=== PATIENT | female | born 1990 | race African-American/Black ===

== ENCOUNTER 2016-12-25 11:56 | Day surgery (SDC) | payer MEDICAID ==
--- NOTE | 2016-12-25 13:53 | PRG ---
DATE OF SERVICE: 12/25/2016 TIME OF EVALUATION: 13:25 TIME OF DICTATION: 13:30 Faculty on a patient. SUBJECTIVE: In brief, this is a patient with late entry into care who was first seen at 33 weeks' and an ultrasound that was done previously confirmed that. She is currently at 33 weeks and 4 days by EDC, which was done at her recent evaluation. Therefore, she has unsure dates. She arri ves now with complaint of irregular contractions and white discharge. She denies any trauma or true leakage of fluid. She denies any vaginal bleeding. She does not have a history of any bi rths. She denies headaches, visual changes or right upper quadrant pain. She denies recent interco urse by history with the resident, although she did tell the nurse that intercourse had been done. PAST MEDICAL HISTORY: Otherwise unremarkable. PAST SURGICAL HISTORY: Negative. FAMILY HISTORY: Noncontributory. MEDICATIONS: vitamins. OB HISTORY: Significant for vaginal deliveries and late entry into care with this gestatio n. Once again, she was seen late in the third trimester at around 33 weeks and currently she is 33 weeks and 4 days. PHYSICAL EXAMINATION: VITAL SIGNS: Blood pressure is 97/65, pulse is 97, respirations are 16, temperature is 98. Clinica lly, she is in no acute distress. ABDOMEN: Soft, nontender. PELVIC EXAM: Currently deferred until we perform a FFN and a HEEL STIFFENER-3 test. On monitor, no evidence of pathological decelerations. heart tones are reassuring with moderate variability. No real contractions on tocodynamometer. ASSESSMENT: This is a multigravida, grand multigravida, who is at 33 weeks and 4 days with complain t of irregular contractions and vaginal discharge. PLAN: 1. We will order a HEEL STIFFENER-3 and gonorrhea and chlamydia PCR. 2. OB labs will be ordered. It is important to note that while she has an appointment at the [facility], no labs have been done yet, therefore we will obtain labs now per routine (HIV, RPR, OB labs). 3. We will order an FFN if in fact the patient confirmed she has not had intercourse within the las t 24 hours. 4. We will perform a cervical exam after the FFN is performed if applicable. 5. For now, continue current observation. 6. There is no evidence of true active labor at this time.
[2016-12-25 14:13] LABS: #Basophils 0.1 thou/uL (0.0-0.2); #Eosinphils 0.1 thou/uL (0.0-0.7); #Lymphocytes 3.1 thou/uL (1.20-3.40); #Monocytes 0.9 thou/uL (0.11-0.59); #Neutrophils 6.9 thou/uL (1.40-6.50); %Basophils 0.8 % (0.0-1.0); %Eosinophils 0.8 % (0.0-10.0); %Lymphocytes 27.6 % (21.0-51.0); %Monocytes 8.1 % (0.0-10.0); Mean Platelet Volume 8.4 fL (7.4-10.4); Red Blood Cell (RBC) Count 3.42 mill/uL (4.20-5.40); White Blood Cell (WBC) Count 11.1 thou/uL (4.8-10.8)
[2016-12-25 15:05] LABS: Bilirubin Negative (Negative); Blood, Urine Negative (Negative); Glucose, Urine (Dipstick) 100 mg/dL (Negative); Ketone, Urine Negative (Negative); Nitrite Negative (Negative); Protein, Urine (Dipstick) Negative (Neg-Trace); Urobilinogen 0.2 mg/dL (0.2-1.0)
[2016-12-25 15:07] LABS: Bacteria/HPF Rare-Few HPF (None Seen); Hyaline Casts/LPF 0-3 HYALINE CAST LPF (0-3 Hyaline); RBC/HPF 0-3 HPF (0-3); Squamous Epithelial 0-3 HPF (0-3)
--- NOTE | 2016-12-25 15:14 | PRG ---
DATE OF SERVICE: 12/25/2016 LOCATION: Labor and delivery. Patient in triage. In brief, this is a patient who has been observing for irregular contractions an d vaginal discharge. This patient was first evaluated by Ever Fernandes with Family Medicine program. 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 Prior to the patient leaving, her cervix was found to be only fingertip with no evidence of ruptured memb ranes. There was no evidence of active contraction pattern neither. Vital signs were stable. So th e decision was made to discharge her home prior to our resulting the PEDIATRIC CARE COORDINATOR-3 and other labs. The [facility] ent team has her phone number and contact information and we will call her should there be any abnor malities on the PEDIATRIC CARE COORDINATOR-3 upon the other lab work done. DIAGNOSES: 1. Threatened labor. 2. Cervix fingertip. 3. Reactive nonstress test. 4. Once again, the patient left after initial evaluation, but left prior to complete evaluation. R ather than signing out against medical advice, we released her with the idea that we will call her b ack if there is anything pressing or abnormal on her evaluation.
== END 2016-12-25 14:25 | disposition home or self-care (01) ==
LOC: L&D/OP 11:56
PROVIDERS: ATTEND Obstetrics & Gynecology
DX: O47.03 False labor before 37 completed weeks of gestation, third trimester (principal); Z3A.33 33 weeks gestation of pregnancy; Z79.899 Other long term (current) drug therapy; Z87.891 Personal history of nicotine dependence
CPT/HCPCS: 81001; 85025; 86706; 86762; 86780; 86900; 86901; 87086; 87389; 87480; 87491; 87510; 87591; 87660

== ENCOUNTER → 2016-12-28 | Day surgery (SDC) | payer MEDICAID ==
[~2016-12-28] MED LIST: Azithromycin 250 MG TAB ONE; Lidocaine 1% PF 5 ML VIAL ONE; cefTRIAXone\\ROCEPHIN 500 MG VIAL ONE
== END ==
LOC: EDSTATUS 10:24 → ER/OP 16:56
PROVIDERS: ATTEND Obstetrics & Gynecology
DX: O98.313 Other infections with a predominantly sexual mode of transmission complicating pregnancy, third trimester (principal); A64 Unspecified sexually transmitted disease; Z3A.34 34 weeks gestation of pregnancy; Z79.899 Other long term (current) drug therapy; Z87.891 Personal history of nicotine dependence
CPT/HCPCS: J0696; J2001

== ENCOUNTER 2017-01-06 21:10 | Day surgery (SDC) | payer MEDICAID, OTHER ==
[2017-01-06 21:40] VITALS: BP 105/58; TEMP 98.1; BMI 27.1
--- NOTE | 2017-01-06 22:14 | PDOC.LDHP ---
Labor and Delivery H&P Chief complaint: other HPI: 26 yo @ 35w2d by LMP with late to care presents for monitoring after being found to have tachycardia at [facility]. She does admit to a migraine headache today. She admits to SOB that she attributes to carrying extra weight. She denies chest pain or abdominal pain. She denies feeling contractions. She does admit to feeling the baby move all the time and denies any vaginal bleeding. She is currently having vaginal discharge that has been going on for the last week. Due date: 02/08/17 Dating criteria: last menstrual period Grav: 8 Para: 6 Current complications: none Abnormal US findings: No Current medications: pre- vitamins Previous surgical history: none Social history: tobacco use (3-4 cigs per day ), alcohol use (none), drug use ( none) - Physical Exam Vital signs reviewed and normal: yes General: NAD Heart: RRR Lungs: nonlabored breathing Abdomen: NTTP Extremeties: no edema FHT: category 2 - OB Labs Blood type: O RH: positive HIV: negative RPR: negative HEPSAg: negative GBS: unknown Additional Labs: Gonorrhea positive on 12/25/16 was treated. - Plan Plan: observation in L&D -: BPP and NST CBC and CMP VP3, UA, UDS LR 1000ml bolus <Lawrence Fallon - Last Filed: 01/06/17 22:30> <Lima Salas - Last Filed: 01/07/17 00:20> Allergies/Adverse Reactions: Allergies Allergy/AdvReac Type Severity Reaction Status Date / Time No Known Allergies Allergy Verified 01/06/17 21:31 Attending Addendum - Attending Addendum I personally evaluated the patient and discussed the management with Dr. Fallon I agree with the History, Examination, Assessment and Plan documented above with any addition or exceptions noted below. 26 yo female at 32.5 wks by LMP/31.3 wk sono sent from [facility] for elevated heart rate. Late and incomplete care sIUP: Labs from previous hospital stay reviewed. Incomplete records from clinic tonight but patient states she has been to every OV. GBS swab performed today. Gonorrhea infection this : s/p treatment. Repeat today. Results not available at time of discharge. tachycardia: Initially borderline at 160 but improved with IVFs. Labs ordered. No evidence of infection. Mild anemia appropriate for state. TSH WNL. No evidence of anomalies on sono. BPP 10/27. Reported small amount of fluid in abdomen but images reviewed. Does not appear to be ascites. Maternal Rh positive. Marijuana use: Discussed risk. Discuss need for screening now that patient was found to be positive. Discussed need to screen after . Patient states understanding and reports she will not use. Anemia of : Continue PNV. Increase iron rich foods. All labs and tracing reviewed. Cat 1 tracing for majority of monitoring. Precautions discussed. Vaginal swabs pending. Has followup appointment with [facility] on Wednesday, patient to keep appointment. Cristina <Lima Salas - Last Filed: 01/07/17 00:20>
[2017-01-06] MEDS ORDERED: Lactated Ringer's 1,000 ML IV SCH (22:15)
[2017-01-06 22:48] LABS: #Eosinphils 0.1 thou/uL (0.0-0.7); #Lymphocytes 3.7 thou/uL (1.20-3.40); #Neutrophils 5.1 thou/uL (1.40-6.50); %Basophils 0.4 % (0.0-1.0); %Eosinophils 1.2 % (0.0-10.0); %Lymphocytes 36.7 % (21.0-51.0); Hematocrit 32.2 % (36.0-47.0); Mean Platelet Volume 8.6 fL (7.4-10.4); Red Blood Cell (RBC) Count 3.26 mill/uL (4.20-5.40); White Blood Cell (WBC) Count 9.9 thou/uL (4.8-10.8)
[2017-01-06 23:04] LABS: ALT (SGPT) 7 U/L (8-55); AST (SGOT) 12 U/L (5-34); Alkaline Phosphatase 172 U/L (40-150); Anion Gap 12 mmol/L (10-20); BUN (Urea Nitrogen) 7 mg/dL (7.0-18.7); Bilirubin, Total Less than 0.2 mg/dL (0.2-1.2); Calc. Creatinine Clearance 148 mL/min (70-130); Calcium 8.7 mg/dL (7.8-10.44); Carbon Dioxide 22 mmol/L (22-29); Chloride 107 mmol/L (98-107); Estimated GFR-MDRD Greater than 90; Globulin 3.2 g/dL (2.4-3.5); Protein, Total 6.2 g/dL (6.0-8.3)
[2017-01-06 23:34] LABS: Bilirubin Negative (Negative); Blood, Urine Negative (Negative); Glucose, Urine (Dipstick) 100 mg/dL (Negative); Ketone, Urine Negative (Negative); Nitrite Negative (Negative); Protein, Urine (Dipstick) Negative (Neg-Trace); Urobilinogen 0.2 mg/dL (0.2-1.0)
--- NOTE | 2017-01-06 23:34 | ULT ---
OB ULTRASOUND ULTRASOUND BIOPHYSICAL PROFILE 01/06/17 HISTORY: tachycardia. FINDINGS: A single live intrauterine gestation is seen with measurements corresponding to an estimated gestati onal age of 36 weeks, 1 day and TERRELL at 02/02/17. The estimated weight measures 2940 grams or 6 lb. 8 oz. measurements are as follows: BPD 8.86 cm 35 weeks, 6 days HC 32.45 cm 36 weeks, 5 days AC 32.44 cm 36 weeks, 2 days FL 7.18 cm 36 weeks, 5 days heart rate measures 139 beats per minute. The KERA measures 13.2 cm. The placenta is posteriorl y located without evidence of placenta previa. A three vessel cord, cord insertion, kidneys, bladder, stomach, four chambered heart, spine, l ateral ventricles, cerebellum, nose/lips, are visualized. No definite anomalies are seen. Normal tone, breathing, movements, and amniotic fluid are seen. The ultrasound bio physical profile score is 8 out of 8. Cervical length measures 2.7 cm. There is suggestion of a tiny amount of fluid under the diaphragm of unknown clinical significance. IMPRESSION: 1. Single live intrauterine gestation of 36 weeks, 1 day estimated gestational age and TERRELL at 1 04/04/16. 2. Ultrasound biophysical profile score is 8 out of 8. 3. Tiny amount of free fluid under the diaphragm of uncertain clinical significance. POS: [facility]
[2017-01-06 23:37] LABS: Bacteria/HPF None Seen HPF (None Seen); Hyaline Casts/LPF 0-3 HYALINE CAST LPF (0-3 Hyaline); RBC/HPF None Seen HPF (0-3); Squamous Epithelial 0-3 HPF (0-3); WBC/HPF 0-3 HPF (0-3)
[2017-01-06 23:43] LABS: Amphetamine Not Detected (NotDetected); Methadone Not Detected (NotDetected); Methamphetamine Not Detected (NotDetected)
== END 2017-01-07 00:15 | disposition home or self-care (01) ==
LOC: L&D/OP 21:10
PROVIDERS: ATTEND Family Medicine
DX: O35.8XX0 Maternal care for other (suspected) fetal abnormality and damage, not applicable or unspecified (principal); O99.333 Smoking (tobacco) complicating pregnancy, third trimester; F17.210 Nicotine dependence, cigarettes, uncomplicated; Z3A.35 35 weeks gestation of pregnancy; Z79.899 Other long term (current) drug therapy
CPT/HCPCS: 36415; 59025; 76805; 76819; 80053; 80306; 81001; 84443; 85025; 87480; 87491; 87510; 87591; 87660; 96360; 96361

== ENCOUNTER 2019-01-31 23:28 | Emergency (ER) | payer OTHER, SELFPAY ==
[2019-02-01 00:10] LABS: #Basophils 0.1 thou/uL (0.0-0.2); #Eosinphils 0.1 thou/uL (0.0-0.7); #Lymphocytes 3.5 thou/uL (1.20-3.40); #Monocytes 0.8 thou/uL (0.11-0.59); #Neutrophils 6.5 thou/uL (1.40-6.50); %Basophils 1.3 % (0.0-1.0); %Eosinophils 0.9 % (0.0-10.0); %Lymphocytes 31.4 % (21.0-51.0); %Monocytes 7.5 % (0.0-10.0); Hemoglobin 10.9 g/dL (12.0-16.0); Mean Corpuscular HGB CONC 33.6 g/dL (32.0-36.0); Mean Corpuscular Hemoglobin 33.5 pg (27.0-31.0); Mean Corpuscular Volume 99.7 fL (78.0-98.0); Mean Platelet Volume 8.3 fL (7.4-10.4); Platelet Count 186 thou/uL (130-400); RBC Distribution Width 11.9 % (11.5-14.5); Red Blood Cell (RBC) Count 3.24 mill/uL (4.20-5.40); White Blood Cell (WBC) Count 11.1 thou/uL (4.8-10.8)
[2019-02-01 00:22] LABS: Bacteria/HPF None Seen HPF (None Seen); Bilirubin Negative (Negative); Blood, Urine 2+ (Negative); Clarity Clear (Clear); Glucose, Urine (Dipstick) 300 mg/dL (Negative); Leukocyte Negative Leu/uL (Negative); Nitrite Negative (Negative); Protein, Urine (Dipstick) Negative (Neg-Trace); RBC/HPF 0-3 HPF (0-3); Squamous Epithelial 0-3 HPF (0-3); Urobilinogen Normal mg/dL (Less than 2); WBC/HPF 0-3 HPF (0-3)
--- NOTE | 2019-02-01 09:05 | ULT ---
PRELIMINARY REPORT/[facility]/EMERGENCY AFTER HOURS PROCEDURE: PROCEDURE INFORMATION: Exam: US After First Trimester, Transabdominal Exam date and time: 02/01/2019 12:05 AM Clinical history: 29 years old, female; Lmp or gestational age (in weeks): 17w2d; Antepartum complica tions; complicated by abdominal or pelvic pain; Lower; Second trimester; ; Patient HX: Pelvic cramping pain, vaginal bleeding TECHNIQUE: Imaging protocol: Real-time transabdominal obstetrical ultrasound of the maternal pelvis and a second or third trimester with image documentation. COMPARISON: No relevant prior studies available. FINDINGS: Viable twin intrauterine . Dividing membrane membrane identified. Fetus A: Cephalic position, on maternal right. Anterior placenta. No placenta previa or other visible placental abnormality on the provided images. Amniotic fluid volume within normal limits. BPD: , 3.7 cm. , 17 weeks, 2 days HC: , 14.2 cm. , 17 weeks, 4 days AC: , 12.0 cm. , 17 weeks, 5 days FL: , 2.2 cm. , 16 weeks, 4 days Composite age: 17 weeks, 2 days. Estimated weight: 185 grams. heart activity documented by the technologist, 149 bpm. Evaluation of anatomy still limited by relatively early gestation, less than 18-19 weeks. Complete/detailed evaluation of anatomy was not performed/possible at this time. Visualized anatomy on the provided images appears within normal limits for gestation. Followup/complete evaluation of anatomy recommended, as clinically appropriate. Fetus B: Breach position, on maternal left. Anterior placenta. No placenta previa or other visible placental abnormality on the provided images. Amniotic fluid volume within normal limits. BPD: , 3.7 cm. , 17 weeks, 2 days HC: , 13.6 cm. , 17 weeks, 1 day AC: , 11.7 cm. , 17 weeks, 3 days FL: , 2.4 cm. , 17 weeks, 1 day Composite age: 17 weeks, 2 days. Estimated weight: 189 grams. heart activity documented by the technologist, 150 bpm. Evaluation of anatomy still limited by relatively early gestation, less than 18-19 weeks. Complete/detailed evaluation of anatomy was not performed/possible at this time. Visualized anatomy on the provided images appears within normal limits for gestation. Followup/complete evaluation of anatomy recommended, as clinically appropriate. Cervical length was estimated with transabdominal scanning, measuring approximately 3.7 cm. No definite cervical canal dilation or fluid on the provided images. No visible maternal adnexal abnormality. The urinary bladder was not completely evaluated/imaged at this time. IMPRESSION: 1. Viable twin intrauterine , composite age 17 weeks, 2 days for both twins. 2. Anterior placenta. No visible placental abnormality on the provided images. 3. Normal amniotic fluid volume in both gestational sacs. 4. Other details discussed above. PROCEDURE INFORMATION: Exam: US After First Trimester, Transabdominal. Additional Gestation Exam date and time: 02/01/2019 12:05 AM Clinical history: 29 years old, female; Lmp or gestational age (in weeks): 17w2d; Antepartum complica tions; complicated by abdominal or pelvic pain; Lower; Second trimester; ; Patient HX: Pelvic cramping pain, vaginal bleeding TECHNIQUE: Imaging protocol: Real-time transabdominal obstetrical ultrasound of the maternal pelvis and a second or third trimester with image documentation. Additional Gestation was evaluated. COMPARISON: No relevant prior studies available. FINDINGS: Viable twin intrauterine . Dividing membrane membrane identified. Fetus A: Cephalic position, on maternal right. Anterior placenta. No placenta previa or other visible placental abnormality on the provided images. Amniotic fluid volume within normal limits. BPD: , 3.7 cm. , 17 weeks, 2 days HC: , 14.2 cm. , 17 weeks, 4 days AC: , 12.0 cm. , 17 weeks, 5 days FL: , 2.2 cm. , 16 weeks, 4 days Composite age: 17 weeks, 2 days. Estimated weight: 185 grams. heart activity documented by the technologist, 149 bpm. Evaluation of anatomy still limited by relatively early gestation, less than 18-19 weeks. Complete/detailed evaluation of anatomy was not performed/possible at this time. Visualized anatomy on the provided images appears within normal limits for gestation. Followup/complete evaluation of anatomy recommended, as clinically appropriate. Fetus B: Breach position, on maternal left. Anterior placenta. No placenta previa or other visible placental abnormality on the provided images. Amniotic fluid volume within normal limits. BPD: , 3.7 cm. , 17 weeks, 2 days HC: , 13.6 cm. , 17 weeks, 1 day AC: , 11.7 cm. , 17 weeks, 3 days FL: , 2.4 cm. , 17 weeks, 1 day Composite age: 17 weeks, 2 days. Estimated weight: 189 grams. heart activity documented by the technologist, 150 bpm. Evaluation of anatomy still limited by relatively early gestation, less than 18-19 weeks. Complete/detailed evaluation of anatomy was not performed/possible at this time. Visualized anatomy on the provided images appears within normal limits for gestation. Followup/complete evaluation of anatomy recommended, as clinically appropriate. Cervical length was estimated with transabdominal scanning, measuring approximately 3.7 cm. No definite cervical canal dilation or fluid on the provided images. No visible maternal adnexal abnormality. The urinary bladder was not completely evaluated/imaged at this time. IMPRESSION: 1. Viable twin intrauterine , composite age 17 weeks, 2 days for both twins. 2. Anterior placenta. No visible placental abnormality on the provided images. 3. Normal amniotic fluid volume in both gestational sacs. 4. Other details discussed above. Thank you for allowing us to participate in the care of your patient. Dictated and Authenticated by: Mihir Reynolds MD 02/01/2019 1:40 AM Central Time ([place] & [place]) FINAL REPORT OB ULTRASOUND: HISTORY: patient. Bleeding. COMPARISON: None. TECHNIQUE: Sagittal and transverse imaging of a gravid uterus is performed. FINDINGS/IMPRESSION: This report is in agreement with the preliminary report by [facility]. Viable twin intrauterine . Anterior placenta. No evidence of previa. Cervical length is 3.7 cm. Fetus A has a heart rate of 149 bpm. Fetus B has a heart rate of 150 bpm. Composite age is 17 weeks and 2 days. POS: [facility]
== END 2019-02-01 01:16 | disposition home or self-care (01) ==
LOC: ERS 23:28
DX: O20.9 Hemorrhage in early pregnancy, unspecified (principal); Z3A.15 15 weeks gestation of pregnancy
CPT/HCPCS: 36415; 76856; 81003; 81015; 84702; 85025; 86900; 86901; 93976

== ENCOUNTER 2019-05-31 10:28 | Inpatient (IN) | payer MEDICAID, OTHER ==
[~2019-05-31 10:28] MED LIST changes: -Azithromycin 250 MG TAB ONE; +Bupivacaine/Epinephrine 0.25% 30 ML VIAL ONE; -Lidocaine 1% PF 5 ML VIAL ONE; -cefTRIAXone\\ROCEPHIN 500 MG VIAL ONE
[2019-05-31] MEDS ORDERED: Betamet Acet/Betamet Na Ph 30 MG/5 ML VIAL ONE (11:02)
[2019-05-31] MEDS ORDERED: Penicillin G Potassium 5 MILL.UNITS VIAL ONE (11:02)
[2019-05-31] MEDS ORDERED: Acetaminophen 500 MG TAB PO PRN (11:08)
[2019-05-31] MEDS ORDERED: NS / Oxytocin 40 units/1000ml 1,000 ML IV PRN (11:08)
[2019-05-31] MEDS ORDERED: hydrALAZINE 20 MG/ML VIAL SLOW IVP PRN ×2 (11:08→18:06)
[2019-05-31] MEDS ORDERED: Methylergonovine 0.2 MG/ML VIAL IM PRN (11:08)
[2019-05-31] MEDS ORDERED: Ondansetron PF 4 MG/2 ML Vial IVP PRN ×3 (11:08→18:06)
[2019-05-31] MEDS ORDERED: Diphenoxylate HCl/Atropine Tablet PO PRN (11:08)
[2019-05-31] MEDS ORDERED: Carboprost 250 MCG/ML AMP IM PRN (11:08)
[2019-05-31] MEDS ORDERED: HYDROcodone/Acetaminophen 5/325 mg Tablet PO PRN ×2 (11:08)
[2019-05-31] MEDS ORDERED: Promethazine HCl 25 MG/ML VIAL IM PRN ×2 (11:08→11:37)
[2019-05-31] MEDS ORDERED: Butorphanol Tartrate 1 MG/ML VIAL SLOW IVP PRN (11:08)
[2019-05-31] MEDS ORDERED: Lidocaine 1% (PF) 30 ML VIAL SC PRN (11:08)
[2019-05-31] MEDS ORDERED: Misoprostol 200 MCG TAB PR PRN (11:08)
[2019-05-31] MEDS ORDERED: Ibuprofen 800 MG TAB PO PRN (11:08)
[2019-05-31] MEDS ORDERED: Lactated Ringer's 1,000 ML IV SCH (11:15)
[2019-05-31] MEDS ORDERED: Penicillin G Potassium 5 MILL.UNITS in Sodium Chloride 0.9% 100 ML IVPB SCH (11:15)
[2019-05-31 11:21] VITALS: BMI 28.7
--- NOTE | 2019-05-31 11:21 | PDOC.LDHP ---
Labor and Delivery H&P Chief complaint: loss of fluid HPI: 29yo at 34w2d by LMP c/w 17w sono with DI/DI TIUP here with complaints of LOF clear since this morning. Some contractions, 4/10 on pain scale. Current gestational age (weeks): 34 Due date: 07/10/19 Dating criteria: last menstrual period Grav: 10 Para: 7 Current complications: di/di twins, other (poor care) Abnormal US findings: No (ceph/ceph, 2%discordance, 1765gm, 1724gm on 05/16) Past Medical History: anemia Current medications: pre-farideh vitamins, iron Previous surgical history: dilation and curettage Allergies/Adverse Reactions: Allergies Allergy/AdvReac Type Severity Reaction Status Date / Time No Known Allergies Allergy Verified 01/06/17 21:31 Social history: none - Physical Exam Vital signs reviewed and normal: yes General: NAD, breathing through contractions Heart: RRR Lungs: CTAB Abdomen: gravid Extremeties: no edema FHT: category 1 Keller contractions every: 4min - Vaginal Exam cm dilated: 4 Effacement: 75% Station: -2 - OB Labs Blood type: O RH: positive Antibody Screen: negative HIV: negative RPR: negative HEPSAg: negative 1 hour GCT: negative GBS: negative Urine drug screen: not done Rubella: immune - Assessment L&D Assessment: premature rupture of membranes - Plan Plan: labor augmentation if indicated, GBS antibiotic prophylaxis, informed consent obtained, anesthesia consult for pain management -: Ceph/Ceph on sono, concordantly grown twins, for twin vaginal delivery. Disc poss breech extraction of second twin and risk of stat CS for second twin if distress arises. Also high risk for PPH based on parity and twin , will do active mgmt of 3rd stage of labor.
[2019-05-31 11:22] LABS: Hemoglobin 9.6 g/dL (12.0-16.0); Mean Corpuscular HGB CONC 33.3 g/dL (32.0-36.0); Mean Corpuscular Hemoglobin 30.8 pg (27.0-31.0); Mean Corpuscular Volume 92.6 fL (78.0-98.0); Platelet Count 204 thou/uL (130-400); RBC Distribution Width 14.2 % (11.5-14.5); Red Blood Cell (RBC) Count 3.11 mill/uL (4.20-5.40); White Blood Cell (WBC) Count 8.7 thou/uL (4.8-10.8)
[2019-05-31] MEDS ORDERED: Betamet Acet/Betamet Na Ph 30 MG/5 ML VIAL IM SCH (11:30)
[2019-05-31] MEDS ORDERED: Fentanyl 4 mcg/Bup 0.1% Cadd 100 ML ONE (11:31)
[2019-05-31] MEDS ORDERED: EPHEDRINE 25 MG/5 ML SYRINGE SLOW IVP PRN (11:37)
[2019-05-31] MEDS ORDERED: Naloxone HCl 0.4 mg/ml Vial IVP PRN ×2 (11:37)
[2019-05-31] MEDS ORDERED: Acetaminophen 325 MG TAB PO PRN (11:37)
[2019-05-31] MEDS ORDERED: diphenhydrAMINE 50 MG/ML VIAL IVP PRN (11:37)
[2019-05-31] MEDS ORDERED: Lactated Ringer's 500 ML IV PRN (11:37)
[2019-05-31] MEDS ORDERED: Fentanyl 4 mcg/Bupivacaine 0.1% Cassette 100 ML EPIDURAL SCH (11:45)
[2019-05-31] MEDS ORDERED: Communication Order-Pharmacy FS SCH (11:45)
[2019-05-31 11:48] LABS: Syphilis Antibody Nonreactive (Nonreactive); Syphilis Antibody Index 0.09 S/CO (<1.00 Non-Reactive)
[2019-05-31 11:49] LABS: HBSAg Index 0.21 S/CO (0-0.99); Hep B Surf Ag Non-Reactive S/CO (NonReactive)
--- NOTE | 2019-05-31 14:33 | PDOC.APC ---
Antepartum Consult SUDARSHAN CALVO is a 29 year old female at [34 4/7] gestational weeks with di/ di twins. I was asked by Dr. Howell to speak with the patient regarding anticipated course for a baby born at 34 weeks. Once the patient is taken for delivery, the resuscitation team will be present. The initial focus will be on respiratory stabilization and may include minimal assistance, CPAP or intubation with surfactant administration. I discussed that the patient will need to be admitted to the NICU in an isolette due to temperature instability associated with prematurity. We will then obtain IV access (peripheral will be first line, umbilical if unable to obtain peripheral) as babies are at risk for hypoglycemia. We discussed that babies born are at higher risk for feeding intolerance, infection and jaundice. I discussed that breastmilk is the best nutrition for babies and she is strongly encouraged to pump after delivery. Mother does not plan to breastfeed and I discussed the risk of NEC with use of formula in babies. I explained that the duration of hospital stay will be determined on the clinical course of the baby. I outlined the milestones that needed to be achieved to ensure safe discharge home (minimum 4 pound weight, maintaining temperature in an open crib , no respiratory support and eating everything by mouth with adequate weight gain). I encouraged her to contact our service again if additional questions arise. I spent 20 minutes with the patient including face to face counseling and coordination of care. Labs: Ante Labs Blood Type O POSITIVE 05/31/19 11:01 Hep Bs Antigen Non-Reactive S/CO (NonReactive) 05/31/19 11:01
[2019-05-31] MEDS ORDERED: PHENYLEPHRINE-NS 100 MCG/ML 10 ML SYRINGE ONE (14:41)
[2019-05-31] MEDS ORDERED: Lidocaine 2% 10 ML INJ ONE (14:42)
[2019-05-31] MEDS ORDERED: Succinylcholine Chloride 20 MG/ML 10 ml SYRINGE FS ONE (14:42)
[2019-05-31] MEDS ORDERED: PROPOFOL 0 ML ONE (14:42)
[2019-05-31] MEDS ORDERED: Oxytocin 10 UNITS/ML VIAL ONE (14:42)
[2019-05-31] MEDS ORDERED: Misoprostol 200 MCG TAB ONE (15:07)
[2019-05-31] MEDS ORDERED: Carboprost 250 MCG/ML AMP ONE (15:08)
[2019-05-31] MEDS ORDERED: Methylergonovine 0.2 MG/ML VIAL ONE (15:08)
[2019-05-31] MEDS ORDERED: NS / Oxytocin 40 units/1000ml 1,000 ML ONE (15:08)
[2019-05-31] MEDS ORDERED: Tranexamic Acid 1,000 MG/10 ML VIAL ONE (15:09)
[2019-05-31] MEDS ORDERED: Penicillin G 2.5 MILL.units 2.5 MILL.UNITS in Premix Bag 1 BAG IVPB SCH (15:15)
[2019-05-31] MEDS ORDERED: NS w/ Oxytocin 10 units 0 ML ONE (15:16)
--- NOTE | 2019-05-31 15:42 | PDOC.OPDEL ---
OB Operative/Delivery Note Delivery Dr/Surgeon: Lynda Quinn/Santos (attending) Assist: Kyleigh Anesthesia: epidural - Findings A Sex: male - 1 min: 8 - 5 min: 9 B Sex: female - 1 min: 9 - 5 min: 9 - Additional Findings/Plan Placenta delivered: spontaneous Repaired Obstetrical Laceration: none Estimated blood loss: 100 Compilations/Other Findings: Procedure: Spontaneous Vaginal Delivery Anesthesia: epidura QBL: 100 ml Pre-op Diagnosis: 1. Prelabor Rupture of Membranes 2. Di/Di twin gestation 3. Hx of PTD at 36wks 4. Hx of EAB x 2 5. Grand multiparity 6. Late to care Post-op Diagnosis: 1. Prelabor Rupture of Membranes 2. Di/Di twin gestation 3. Hx of PTD at 36wks 4. Hx of EAB x 2 5. Grand multiparity 6. Late to care Indications: A 29 y/o female presents with LOF, admitted for PPROM. Delivery Note: This is a 29 y/o female @ 34.2wks who was admitted for PPROM now s/p to viable di/di twins. Following an uneventful antepartum course, a vigorous male was delivered over an intact perineum in the occipitoanterior position at 1521. Anterior Shoulder and then remainder of the body delivered. No nuchal cord. The head was held down and mouth and nares were bulb suctioned. Cord clamped and cut and cord blood collected. Baby A was taken to the warmer for evaluation by NICU. Apgars were 8 & 9. Following delivery of Baby A, then AROM was accomplished with an allis clamp for Baby B. Following this, Baby B presented in the cephalic presentatio and at 1526 a vigorous female was delivered over an intact perineum in the occipitoanterior position. Anterior Shoulder and then remainder of the body delivered. No nuchal cord. The head was held down and mouth and nares were bulb suctioned. Cord clamped and cut and cord blood collected. Baby B was taken to the warmer for evaluation by NICU. Apgars were 9 & 9. Placenta A and B delivered intact each with a 3 vessel cord noted. Fundal massage was performed and the fundus was firm. The cervix and vagina were inspected and found to be free of lacerations. Infants went to NICU in good condition. Patient tolerated delivery well and went to after routine recovery. Post delivery plan: routine recovery
[2019-05-31 16:09] LABS: Amphetamine Not Detected (NotDetected); Barbiturates Screen Not Detected (NotDetected); Benzodiazepine Screen Not Detected (NotDetected); Cocaine Metabolite Screen Not Detected (NotDetected); Medtox Control Line Valid? VALID (VALID); Medtox Reader # READER 1; Methadone Not Detected (NotDetected); Methamphetamine Not Detected (NotDetected); Opiate Screen Not Detected (NotDetected); Oxycodone Screen Not Detected (NotDetected); Phencyclidine (PCP) Not Detected (NotDetected); THC/Cannabinoid Screen Detected (NotDetected); Tricyclic Screen Not Detected (NotDetected)
[2019-05-31] MEDS ORDERED: NS / Oxytocin 40 units/1000ml 1,000 ML IV SCH (18:06)
[2019-05-31] MEDS ORDERED: Lanolin Ointment 7 GM TUBE TOP PRN (18:06)
[2019-05-31] MEDS ORDERED: Milk Of Magnesia 30 ML UDCUP PO PRN (18:06)
[2019-05-31] MEDS ORDERED: Bisacodyl 10 MG SUPP PR PRN (18:06)
[2019-05-31] MEDS ORDERED: Ferrous Sulfate 325 MG TAB PO SCH (18:45)
[2019-05-31] MEDS: Docusate Calcium (SURFAK) 240 MG CAP PO SCH (21:05)
[2019-05-31] MEDS: Ibuprofen 800 MG TAB PO SCH (21:06)
[2019-06-01] MEDS: Ibuprofen 800 MG TAB PO SCH ×3 (05:41→21:43)
--- NOTE | 2019-06-01 06:05 | PDOC.PP ---
Post Progress Note Post Day #: 1 PO intake tolerated: yes Flatus: yes Ambulation: yes Vital Signs (12 hours) Temp Pulse Resp BP Pulse Ox 06/01/19 04:00 98.2 F 60 14 121/60 99 06/01/19 00:00 98.2 F 59 L 16 125/65 99 05/31/19 20:00 98.3 F 60 20 114/60 99 05/31/19 18:06 98.4 F 54 L 20 122/58 L 98 Weight Weight 73.482 kg - Physical Examination General: NAD Cardiovascular: no m/r/g, RRR Respiratory: clear to auscultation bilaterally, non-labored breathing Abdominal: + bowel sounds, lochia, appropriately TTP Neurological: no gross focal deficits Psychiatric: A&Ox3, normal affect Result Diagrams: 06/01/19 06:11 Additional Labs: Post Labs Blood Type O POSITIVE 05/31/19 11:01 Hep Bs Antigen Non-Reactive S/CO (NonReactive) 05/31/19 11:01 (1) Twin delivered Code(s): O30.009 - TWIN , UNSP NUM PLCNTA & AMNIO SACS, UNSP TRIMESTER Status: Acute (2) (normal spontaneous vaginal delivery) Code(s): O80 - ENCOUNTER FOR FULL-TERM UNCOMPLICATED DELIVERY Status: Acute - Assessment/Plan Mom doing well. Minimal bleeding. Ambulating. Tolerating normal diet. Pain controlled. Hb 9.6-->8.7. UDS + marijuana; will consult case management.
[2019-06-01 06:30] LABS: Hemoglobin 8.7 g/dL (12.0-16.0); Mean Corpuscular HGB CONC 33.4 g/dL (32.0-36.0); Mean Corpuscular Hemoglobin 30.7 pg (27.0-31.0); Mean Corpuscular Volume 92.1 fL (78.0-98.0); Mean Platelet Volume 9.7 fL (7.4-10.4); Platelet Count 147 thou/uL (130-400); Red Blood Cell (RBC) Count 2.83 mill/uL (4.20-5.40); White Blood Cell (WBC) Count 15.7 thou/uL (4.8-10.8)
[2019-06-01] MEDS ORDERED: Adacel (T-DAP) 0.5 ML SYRINGE IM ONE (09:00)
[2019-06-01] MEDS: Ferrous Sulfate 325 MG TAB PO SCH ×2 (09:15→17:27)
[2019-06-01] MEDS: Docusate Calcium (SURFAK) 240 MG CAP PO SCH ×2 (09:15→21:43)
[2019-06-01] MEDS: Prenatal Vitamin 1 TAB PO SCH (09:15)
--- NOTE | 2019-06-02 04:29 | PDOC.PP ---
Post Progress Note Post Day #: 2 PO intake tolerated: yes Flatus: yes Ambulation: yes Vital Signs (12 hours) Temp Pulse Resp BP Pulse Ox 06/02/19 00:00 97.5 F L 68 16 104/71 98 06/01/19 20:00 97.7 F 65 14 110/63 99 06/01/19 16:50 98.1 F 61 18 119/82 99 Weight Weight 73.482 kg - Physical Examination General: NAD Cardiovascular: no m/r/g, RRR Respiratory: clear to auscultation bilaterally, non-labored breathing Abdominal: + bowel sounds, lochia, appropriately TTP Neurological: no gross focal deficits Psychiatric: A&Ox3, normal affect Result Diagrams: 06/01/19 06:11 Additional Labs: Post Labs Blood Type O POSITIVE 05/31/19 11:01 Hep Bs Antigen Non-Reactive S/CO (NonReactive) 05/31/19 11:01 (1) Twin delivered Code(s): O30.009 - TWIN , UNSP NUM PLCNTA & AMNIO SACS, UNSP TRIMESTER Status: Acute (2) (normal spontaneous vaginal delivery) Code(s): O80 - ENCOUNTER FOR FULL-TERM UNCOMPLICATED DELIVERY Status: Acute - Assessment/Plan Mom doing well. Minimal bleeding. Ambulating. Tolerating normal diet. Pain controlled. Hb 9.6-->8.7. UDS + marijuana; if seen and cleared by CM today, would recommend bed and breakfast tonight since babies both currently in the NICU. Faculty OBGYN Note: Attestation. I have seen ans agree with plan of care. If able to be sent home today we will bed and breakfast.
[2019-06-02] MEDS: Ibuprofen 800 MG TAB PO SCH (05:52)
[2019-06-02 08:24] VITALS: BP 137/89; TEMP 98.8
[2019-06-02] MEDS: Ferrous Sulfate 325 MG TAB PO SCH (10:12)
[2019-06-02] MEDS: Prenatal Vitamin 1 TAB PO SCH (10:12)
[2019-06-02] MEDS: Docusate Calcium (SURFAK) 240 MG CAP PO SCH (10:12)
== END 2019-06-02 11:40 | disposition home or self-care (01) | DRG 806 ==
LOC: L&D/OP 10:28 → L&D 10:49 → 3SE 18:17
PROVIDERS: ADMIT Student in an Organized Health Care Education/Training Program; ATTEND Student in an Organized Health Care Education/Training Program
PROC: 10E0XZZ Delivery of Products of Conception, External Approach (ICD-10-PCS; principal; 2019-05-31)
PROC: 10907ZC Drainage of Amniotic Fluid, Therapeutic from Products of Conception, Via Natural or Artificial Opening (ICD-10-PCS; 2019-05-31)
DX: O42.013 Preterm premature rupture of membranes, onset of labor within 24 hours of rupture, third trimester (principal); O99.324 Drug use complicating childbirth; Z37.2 Twins, both liveborn; Z3A.34 34 weeks gestation of pregnancy; O30.043 Twin pregnancy, dichorionic/diamniotic, third trimester; F12.90 Cannabis use, unspecified, uncomplicated
CPT/HCPCS: 36415; 36430; 51702; 80306; 85027; 86780; 86850; 86900; 86901; 87340; 99285; J0702; J2001; J2210; J2540; J2590; J2704; J3490

== ENCOUNTER 2020-01-28 00:43 | Emergency (ER) | payer OTHER ==
[2020-01-28] MEDS ORDERED: Fentanyl 100 MCG/2 ML VIAL ONE ×2 (00:49→01:28)
[2020-01-28] MEDS ORDERED: Boostrix 0.5 ML (Tdap) VIAL ONE (01:02)
[2020-01-28 01:08] LABS: Hemoglobin 14.1 g/dL (12.0-16.0); Mean Corpuscular HGB CONC 34.2 g/dL (32.0-36.0); Mean Corpuscular Hemoglobin 34.4 pg (27.0-31.0); Mean Platelet Volume 8.5 fL (7.4-10.4); Platelet Count 259 thou/uL (130-400); RBC Distribution Width 12.2 % (11.5-14.5); Red Blood Cell (RBC) Count 4.11 mill/uL (4.20-5.40); White Blood Cell (WBC) Count 11.4 thou/uL (4.8-10.8)
[2020-01-28 01:10] LABS: PTT 30.8 sec (22.9-36.1)
[2020-01-28 01:19] LABS: Prothrombin Time 13.7 sec (12.0-14.7)
[2020-01-28 01:34] LABS: MDiff Complete? YES
[2020-01-28 01:35] LABS: Eosinophils 1 % (0-10); Lymphocytes 59 % (21-51); Monocytes 9 % (0-10); Neutrophil 26 % (42-75); Reactive Lymphocytes 5 % (0-10)
[2020-01-28 01:48] LABS: ALT (SGPT) 14 U/L (8-55); AST (SGOT) 22 U/L (5-34); Albumin 4.2 g/dL (3.5-5.0); Alkaline Phosphatase 60 U/L (40-110); Anion Gap 19 mmol/L (10-20); BUN (Urea Nitrogen) 15 mg/dL (7.0-18.7); Bilirubin, Total 0.4 mg/dL (0.2-1.2); Calc. Creatinine Clearance 0 mL/min (70-130); Calcium 9.3 mg/dL (7.8-10.44); Carbon Dioxide 16 mmol/L (22-29); Chloride 110 mmol/L (98-107); Estimated GFR-MDRD 87; Globulin 3.4 g/dL (2.4-3.5); Glucose 110 mg/dL (70-105); Potassium 4.2 mmol/L (3.5-5.1); Protein, Total 7.6 g/dL (6.0-8.3); Sodium 141 mmol/L (136-145)
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
== END 2020-01-28 03:53 | disposition home or self-care (01) ==
LOC: ERS 00:43
DX: S71.131A Puncture wound without foreign body, right thigh, initial encounter (principal); W34.09XA Accidental discharge from other specified firearms, initial encounter; Z23 Encounter for immunization
CPT/HCPCS: 80053; 85025; 85610; 85730; 86850; 86900; 86901; 90471; 90715; 96374; 96375; 96376; G0390; J0690; J3010

== ENCOUNTER 2020-06-16 10:24 | Emergency (ER) | payer OTHER ==
[2020-06-16] MEDS ORDERED: Ketorolac Tromethamine 30 MG/ML VIAL ONE (10:56)
== END 2020-06-16 12:00 | disposition home or self-care (01) ==
LOC: ERS 10:24
DX: M54.2 Cervicalgia (principal); R07.9 Chest pain, unspecified; V89.2XXA Person injured in unspecified motor-vehicle accident, traffic, initial encounter
CPT/HCPCS: 71046; 93005; 96372; J1885

== ENCOUNTER 2021-04-01 03:02 | Emergency (ER) | payer OTHER, SELFPAY ==
[2021-04-01] MEDS ORDERED: Acetaminophen 500 MG TAB ONE (03:17)
[2021-04-01 22:29] LABS: SARS-CoV-2 PCR by NAA DETECTED (NotDetected)
== END 2021-04-01 04:17 | disposition home or self-care (01) ==
LOC: ERS 03:02
DX: U07.1 COVID-19 (principal); F17.200 Nicotine dependence, unspecified, uncomplicated
CPT/HCPCS: 87804; 99283; U0003; U0005

== ENCOUNTER 2022-02-24 09:14 | Emergency (ER) | payer OTHER, SELFPAY ==
[2022-02-24] MEDS ORDERED: Ketorolac Tromethamine 30 MG/ML VIAL ONE (11:12)
== END 2022-02-24 11:39 | disposition home or self-care (01) ==
LOC: ERS 09:14
DX: M10.9 Gout, unspecified (principal); F17.200 Nicotine dependence, unspecified, uncomplicated
CPT/HCPCS: J1885

== ENCOUNTER 2022-02-25 07:59 | Emergency (ER) | payer OTHER ==
[2022-02-25] MEDS ORDERED: Ketorolac Tromethamine 30 MG/ML VIAL ONE ×2 (09:04)
== END 2022-02-25 09:57 | disposition home or self-care (01) ==
LOC: ERS 07:59
DX: M79.89 Other specified soft tissue disorders (principal)
CPT/HCPCS: 96372; 99283; J1885

== ENCOUNTER 2023-04-17 07:28 | Emergency (ER) | payer OTHER, SELFPAY ==
[2023-04-17] MEDS ORDERED: Ondansetron PF 4 MG/2 ML Vial ONE (08:24)
[2023-04-17] MEDS ORDERED: Pantoprazole 40 MG VIAL ONE (08:24)
[2023-04-17 08:28] LABS: #Monocytes 0.5 thou/uL (0.11-0.59); #Neutrophils 6.2 thou/uL (1.40-6.50); %Basophils 0.4 % (0.0-1.0); %Eosinophils 0.1 % (0.0-10.0); %Lymphocytes 11.5 % (21.0-51.0); %Neutrophils 80.7 % (42.0-75.0); Hemoglobin 13.9 g/dL (12.0-16.0); Mean Corpuscular HGB CONC 33.9 g/dL (32.0-36.0); Mean Corpuscular Hemoglobin 33.7 pg (27.0-31.0); Mean Corpuscular Volume 99.5 fl (78.0-98.0); Mean Platelet Volume 10.2 fL (7.4-10.4); Platelet Count 234 10x3/uL (130-400); RBC Distribution Width 13.3 % (11.5-14.5); Red Blood Cell (RBC) Count 4.12 mill/uL (4.20-5.40); White Blood Cell (WBC) Count 7.7 10x3/uL (4.8-10.8)
[2023-04-17] MEDS ORDERED: Multivitamins, Adult 10 ML, Thiamine HCl 100 MG, Folic Acid 1 MG in Dextrose 5 %-0.45 %... IV SCH (09:00)
[2023-04-17 09:07] LABS: ALT (SGPT) 18 U/L (8-55); AST (SGOT) 23 U/L (5-34); Albumin 4.6 g/dL (3.5-5.0); Alkaline Phosphatase 49 U/L (40-110); Anion Gap 15 mmol/L (10-20); BUN (Urea Nitrogen) 13 mg/dL (7.0-18.7); Bilirubin, Total 0.3 mg/dL (0.2-1.2); Calc. Creatinine Clearance 0 mL/min (70-130); Calcium 9.1 mg/dL (7.8-10.44); Carbon Dioxide 23 mmol/L (22-29); Chloride 105 mmol/L (98-107); Estimated GFR 101; Globulin 3.5 g/dL (2.4-3.5); Glucose 106 mg/dL (70-105); Lipase 12 U/L (8-78); Potassium 3.7 mmol/L (3.5-5.1); Protein, Total 8.1 g/dL (6.0-8.3); Sodium 139 mmol/L (136-145)
[2023-04-17 09:46] LABS: Bacteria/HPF None Seen HPF (None Seen); Bilirubin Negative (Negative); Blood, Urine Negative (Negative); CAUTI Indications for Culture Pelvic or flank pain; Clarity Clear (Clear); Glucose, Urine (Dipstick) 200 mg/dL (Negative); Ketone, Urine Negative (Negative); Leukocyte Negative Leu/uL (Negative); Nitrite Negative (Negative); Protein, Urine (Dipstick) 50 mg/dL (Neg-Trace); Specific Gravity, Urine 1.024 (1.002-1.036); Squamous Epithelial 0-3 HPF (0-3); Urobilinogen Normal mg/dL (Less than 2); WBC/HPF 0-3 HPF (0-3); pH, Urine 8.5 (5.0-9.0)
[2023-04-17 09:47] LABS: Pregnancy Test - Urine (BHCG) Negative (Negative); Pregu Control Background? CLEAR/WHITE (CLR/WHITE); Pregu Control Bar Appear? YES (CONTROL BAR); Specific Gravity 1.024 (1.002-1.036); Urine Culture Reflex No No
== END 2023-04-17 09:53 | disposition home or self-care (01) ==
LOC: ERS 07:28
DX: K29.20 Alcoholic gastritis without bleeding (principal); F10.10 Alcohol abuse, uncomplicated; R11.10 Vomiting, unspecified; Y90.9 Presence of alcohol in blood, level not specified
CPT/HCPCS: 80053; 81001; 81025; 83690; 85025; 96365; 96375; C9113; J2405; J3411; J7042

== ENCOUNTER 2024-01-15 13:39 | Emergency (ER) | payer SELFPAY ==
[2024-01-15] MEDS ORDERED: Ondansetron PF 4 MG/2 ML Vial ONE (13:49)
[2024-01-15 14:09] LABS: #Basophils 0.04 10x3/uL (0.0-0.2); #Eosinophils Less than 0.03 10x3/uL (0.0-0.7); %Basophils 0.3 % (0.0-1.0); %Eosinophils 0.1 % (0.0-10.0); %Lymphocytes 25.3 % (21.0-51.0); Hematocrit 43.3 % (36.0-47.0); Hemoglobin 14.5 g/dL (12.0-16.0); Mean Corpuscular HGB CONC 33.5 g/dL (32.0-36.0); Mean Corpuscular Volume 98.4 fL (78.0-98.0); Mean Platelet Volume 10.4 fL (7.4-10.4); Platelet Count 278 10x3/uL (130-400); RBC Distribution Width 13.4 % (11.5-14.5)
[2024-01-15 14:20] LABS: BHCG - Serum Negative (NEGATIVE); Pregs Control Background? CLEAR/WHITE (CLR/WHITE); Pregs Control Bar Appear? YES (CONTROL BAR)
[2024-01-15 14:24] LABS: ALT (SGPT) 15 U/L (8-55); AST (SGOT) 24 U/L (5-34); Albumin 4.7 g/dL (3.5-5.0); Alkaline Phosphatase 59 U/L (40-110); Anion Gap 23 mmol/L (10-20); BUN (Urea Nitrogen) 14 mg/dL (7.0-18.7); Bilirubin, Total 0.5 mg/dL (0.2-1.2); Calc. Creatinine Clearance 0 mL/min (70-130); Calcium 9.6 mg/dL (7.8-10.44); Carbon Dioxide 18 mmol/L (22-29); Chloride 105 mmol/L (98-107); Estimated GFR 97; Globulin 4.3 g/dL (2.4-3.5); Glucose 98 mg/dL (70-105); Potassium 3.6 mmol/L (3.5-5.1); Sodium 142 mmol/L (136-145)
[2024-01-15 14:25] LABS: Acetaminophen Less than 10 mcg/mL (Less than 10); Alcohol 37.1 mg/dL (Less than 10); Salicylate Less than 8.0 mg/dL (Less than 8.0)
== END 2024-01-15 16:03 | disposition home or self-care (01) ==
LOC: ERS 13:39
DX: R11.2 Nausea with vomiting, unspecified (principal); F17.200 Nicotine dependence, unspecified, uncomplicated
CPT/HCPCS: 36415; 80053; 80307; 84703; 85025; 96361; 96374; J2405

== ENCOUNTER 2024-12-01 02:21 | Emergency (ER) | payer SELFPAY ==
[2024-12-01] MEDS ORDERED: Ondansetron PF 4 MG/2 ML Vial ONE (02:54)
[2024-12-01 03:14] LABS: ALT (SGPT) 17 U/L (Less than 34); AST (SGOT) 36 U/L (11-34); Albumin 4.2 g/dL (3.1-4.5); Alkaline Phosphatase 47 U/L (40-110); Anion Gap 21 mmol/L (10-20); BUN (Urea Nitrogen) 9 mg/dL (7.0-18.7); Bilirubin, Total 0.3 mg/dL (0.3-1.2); Calc. Creatinine Clearance 0 mL/min (70-130); Calcium 9.1 mg/dL (7.8-10.44); Carbon Dioxide 19 mmol/L (22-29); Chloride 106 mmol/L (98-107); Globulin 4.0 g/dL (2.4-3.5); Glucose 90 mg/dL (70-105); Lipase 8 U/L (8-78); Magnesium 1.8 mg/dL (1.6-2.6); Potassium 4.1 mmol/L (3.5-5.1); Sodium 142 mmol/L (136-145)
[2024-12-01 03:57] LABS: BHCG - Serum Negative (NEGATIVE); Pregs Control Background? CLEAR/WHITE (CLR/WHITE); Pregs Control Bar Appear? YES (CONTROL BAR)
[2024-12-01 05:13] LABS: Bacteria/HPF None Seen HPF (None Seen); CAUTI Indications for Culture Pelvic or flank pain; Glucose, Urine (Dipstick) 150 mg/dL (Negative); Leukocyte Negative Leu/uL (Negative); Protein, Urine (Dipstick) 30 mg/dL (Neg-Trace); RBC/HPF None Seen HPF (0-3); Specific Gravity, Urine 1.024 (1.002-1.036); WBC/HPF 0-3 HPF (0-3)
[2024-12-01 05:14] LABS: Urine Culture Reflex No No
[2024-12-01 05:22] LABS: #Basophils 0.03 10x3/uL (0.0-0.2); #Eosinophils Less than 0.03 10x3/uL (0.0-0.7); #Monocytes 0.54 10x3/uL (0.11-0.59); #Neutrophils 8.56 10x3/uL (1.40-6.50); %Basophils 0.3 % (0.0-1.0); %Eosinophils 0.0 % (0.0-10.0); %Lymphocytes 15.1 % (21.0-51.0); %Monocytes 5.0 % (0.0-10.0); %Neutrophils 79.4 % (42.0-75.0); Hematocrit 36.7 % (36.0-47.0); Hemoglobin 12.1 g/dL (12.0-16.0); Mean Corpuscular Hemoglobin 33.2 pg (27.0-31.0); Mean Corpuscular Volume 100.8 fL (78.0-98.0); Platelet Count 243 10x3/uL (130-400); Red Blood Cell (RBC) Count 3.64 mill/uL (4.20-5.40); White Blood Cell (WBC) Count 10.78 10x3/uL (4.8-10.8)
== END 2024-12-01 05:29 | disposition home or self-care (01) ==
LOC: ERS 02:21
DX: R11.2 Nausea with vomiting, unspecified (principal); R80.9 Proteinuria, unspecified; F17.200 Nicotine dependence, unspecified, uncomplicated
CPT/HCPCS: 36415; 80053; 81001; 83690; 83735; 84703; 85025; 93005; 96374; J2405